=== PATIENT | female | born 1985 | race African-American/Black ===

== ENCOUNTER 2020-01-16 11:55 | Emergency (ER) | payer OTHER, SELFPAY ==
[2020-01-16] VITALS (11 sets, daily range): BP systolic 130–172; BP diastolic 92–112; PULSE 110; RESP 18; TEMP 36.6; O2SAT 97–100
--- NOTE | ~2020-01-16 | XR_ITS ---
EXAMINATION: XR lumbar spine 2-3V, XR thoracic spine 2V EXAM DATE: 01/16/2020 14:07 INDICATION: Mid and low back pain. TECHNIQUE: Lumber spine frontal, lateral, lateral L5-S1 projections for interpretation. Frontal and lateral projections of the thoracic spine. Paraspinal soft tissue is unremarkable. FINDINGS: Thoracic spine is aligned with disc and vertebral body heights maintained. Paraspinal soft tissue is unremarkable. Lumbar spine also demonstrates normal alignment with disc and vertebral body heights maintained. Ther e is mild mid and lower lumbar facet arthropathy. Sacrum, sacroiliac joints, sacral arcuate lines are intact. IMPRESSION: 1. Mild lumbar facet arthropathy. 2. Normal thoracic spine. Reviewed, dictated and finalized at location B. IMPRESSION: 1. Mild lumbar facet arthropathy. 2. Normal thoracic spine.
--- NOTE | ~2020-01-16 | XR_ITS ---
XR_[id number]_CR 01/16/2020 14:06 Indication: Neck pain Procedure: 3 view cervical spine Comparison: No prior studies for comparison. Findings: No acute fracture, subluxation or dislocation. There is developmental fusion at C4-5. No pr evertebral soft tissue abnormality. Odontoid process within normal limits. Lung apices are normal. Impression: 1: No acute abnormality of the cervical spine. Reviewed, dictated and finalized at location A. Impression: 1: No acute abnormality of the cervical spine.
[2020-01-16 12:59] LABS: Basophils Percent Auto 0.4 % (0.2-1.2); Eosinophils Absolute Auto 0.2 K/mm3 (0-0.3); Eosinophils Percent Auto 1.6 % (0-4.4); Hematocrit 35.9 % (37.0-47.0); Hemoglobin 11.5 g/dL (12.0-15.0); Immature Granulocyte Absolute 0.03 K/mm3 (0.00-0.031); Immature Granulocyte Percent A 0.3 % (0-0.5); Lymphocytes Absolute Auto 2.89 K/mm3 (0.9-3.2); Lymphocytes Percent Auto 26.9 % (18.3-44.2); Monocytes Absolute Auto 0.8 K/mm3 (0.1-0.6); Monocytes Percent Auto 7.8 % (2.6-8.5); Neutrophils Absolute Auto 6.8 K/mm3 (1.3-6.7); Platelet Count Result 335 k/mm3 (150-375); Red Blood Count 4.43 M/mm3 (4.2-5.4); Red Cell Distribution Width 13.5 % (11.5-14.5); White Blood Count 10.8 K/mm3 (4.5-10.0)
--- NOTE | 2020-01-16 13:01 | ED.GENADULT ---
HPI - General Adult General Chief complaint: Back Pain/Injury Stated complaint: Back pain x4 days Time Seen by Provider: 01/16/20 12:30 Source: patient History of Present Illness HPI narrative: Patient is a 34 y/o female complaining of neck pain and back pain for last 4 days. She states that her neck pain radiates to her right arm. She states that her pain is sharp and dull and rates it as 8-9/10. She states that movement aggravates her pain. She states that she was [place] and she may have tenses up her muscle and caused her problems. She denies any fever, chills. She denies any difficulty with bowel or bladder function. She has no leg pain, numbness and she is able to ambulate without difficulty. Related Data Allergies Allergy/AdvReac Type Severity Reaction Status Date / Time latex Allergy Rash Verified 01/16/20 12:24 metronidazole [From Flagyl] Allergy Itching Verified 01/16/20 12:23 shellfish derived Allergy Anaphylaxis Verified 01/16/20 12:24 Review of Systems Constitutional: Constitutional: Denies chills, Denies fever(s), Denies headache(s) and Denies weakness Eyes: Eyes: Denies blurry vision ENT: Denies headache(s) and Denies neck pain Cardiovascular: Cardiovascular: Denies chest pain and Denies dyspnea Respiratory: Respiratory: Denies cough and Denies dyspnea Gastrointestinal: Gastrointestinal: Denies abdominal pain, Denies diarrhea, Denies nausea and Denies vomiting Genitourinary: Genitourinary: Denies hematuria and Denies dysuria Musculoskeletal: Musculoskeletal: Reports back pain, Reports neck pain and Reports stiffness Neurologic: Denies headache(s) and Denies weakness [facility] Social History Social History Gender identity (if verbalized by the patient): Female Exam Const: General: no acute distress and well developed Orientation/consciousness: oriented to person, oriented to place, oriented to time and patient oriented x3 HENMT: Head: normocephalic Ears: external ears normal General nose exam: Normal external nose present Eyes: General: appearance normal, both eyes and all related structures Conjunctivae: conjunctivae normal Neck: Neck: normal visual inspection and full ROM Chest: Chest palpation & inspection: normal inspection of the chest and no tenderness Resp: Effort & Inspection: normal respiratory effort Auscultation: clear to auscultation bilaterally Cardio: Rate: regular rate Rhythm: regular rhythm GI: GI Palp: No abdominal tenderness and Yes Soft to palpation Skin: General skin exam: normal color and turgor normal Neuro: General: oriented to person, oriented to place, oriented to time and patient oriented x3 Cognition (Neuro): normal cognition Extrem: General: normal to inspection, full ROM and no pedal edema Psych: Appearance: grossly normal Mental Status: mental status grossly normal Affect: normal affect Course Reevaluation(s) Reevaluation #1: Rechecked. Patient feels better. Date: 01/16/20 Time: 14:48 Vital Signs Vital signs: Vital Signs Temperature 36.6 C 01/16/20 12:25 Pulse Rate 110 H 01/16/20 12:25 Respiratory Rate 18 01/16/20 12:25 Blood Pressure 172/103 H 01/16/20 12:25 Pulse Oximetry 100 01/16/20 12:25 Temperature 36.6 C 01/16/20 12:25 Pulse Rate 110 H 01/16/20 12:25 Respiratory Rate 18 01/16/20 12:25 Blood Pressure 171/112 H 01/16/20 13:31 Pulse Oximetry 99 01/16/20 13:45 Medical Decision Making Vital Signs Vital Signs: Vital Signs Temperature 36.6 C 01/16/20 12:25 Pulse Rate 110 H 01/16/20 12:25 Respiratory Rate 18 01/16/20 12:25 Blood Pressure 172/103 H 01/16/20 12:25 Pulse Oximetry 100 01/16/20 12:25 Temperature 36.6 C 01/16/20 12:25 Pulse Rate 110 H 01/16/20 12:25 Respiratory Rate 18 01/16/20 12:25 Blood Pressure 171/112 H 01/16/20 13:31 Pulse Oximetry 99 01/16/20 13:45 Lab Data Result
[2020-01-16] MEDS: KETOROLAC (*BKC) 60 MG/2 ML VIAL IM (13:08)
[2020-01-16 13:13] LABS: Anion Gap 6 mmol/L (8-16); Blood Urea Nitrogen 9 mg/dL (7-17); Calcium 8.9 mg/dL (8.4-10.2); Carbon Dioxide 27 mmol/L (22-30); Chloride 103 mmol/L (98-107); Estimated CRCL calculation 96 ml/min; Estimated Glomerular Filt Rate > 60; Glucose 95 mg/dL (65-105); Sodium 136 mmol/L (137-145)
[2020-01-16 14:06] LABS: Add Urine Microscopic? YES; Appearance Urine Clear (Clear); Bacteria Urine Trace /hpf; Bilirubin Urine Negative (Negative); Blood Urine Negative (Negative); Color Urine Yellow (Yellow); Glucose Urine UA Negative (Negative); Ketones Urine Trace mg/dL (Negative); Leukocyte Esterase Ur Negative LEU/UL (Negative); Mucus Urine Rare /lpf; Nitrate Urine Negative (Negative); Protein Urine 1+ mg/dL (Negative); RBC Urine 0-2 /hpf (0-2); Specific Grav Ur 1.024 (1.001-1.035); Squamous Epithelial Cell Urine Many /hpf (Few); WBC Urine 0-3 /hpf
== END 2020-01-16 15:28 | disposition home or self-care (01) ==
PROVIDERS: Emergency Provider Emergency Medicine
DX: M54.12 Radiculopathy, cervical region (principal); M54.5 Low back pain; I10 Essential (primary) hypertension
CPT/HCPCS: 36415; 72040; 72070; 72100; 80048; 81001; 81025; 85025; 96372; 99284; J1885